=== PATIENT | male | born 1965 | race Caucasian/White ===

== ENCOUNTER 2017-10-14 14:54 | Emergency (ER) | payer OTHER ==
[~2017-10-14] VITALS: Ht 175.3 cm; Wt 96.0 kg
[2017-10-14 15:04] VITALS: TEMP 36.8; Ht 175.3 cm; Wt 96.0 kg
[2017-10-14 16:17] LABS: BASO % 1.2 %; BASO ABS # 0.05 K/uL (0-0.2); EOS % 2.6 %; EOS ABS # 0.11 K/uL (0-0.5); HEMATOCRIT 45.6 % (42-52); HEMOGLOBIN 15.4 g/dL (14.0-18.0); LYMPH % 49.5 %; LYMPH ABS # 2.11 K/uL (1.2-3.4); MEAN CELL VOLUME 93.6 fL (80-100); MEAN CORPUSCULAR HEMOGLOBIN 31.6 pg (25-34); MEAN CORPUSCULAR HGB CONC 33.8 g/dl (32-36); MEAN PLATELET VOLUME 9.8 fL (7.4-10.4); MONO % 5.6 %; MONO ABS # 0.24 K/uL (0.11-0.59); NEUT % 41.1 %; NEUT ABS # 1.75 K/uL (1.4-6.5); PLATELET COUNT 132 K/uL (130-400); RED CELL DISTRIBUTION WIDTH CV 14.1 % (11.5-14.5); RED CELL DISTRIBUTION WIDTH SD 48.2 fL (36.4-46.3); WHITE BLOOD COUNT 4.26 K/uL (4.8-10.8)
[2017-10-14 16:36] LABS: PTT PATIENT 24.7 SECONDS (21.0-31.0)
[2017-10-14 16:51] LABS: ALBUMIN 4.4 gm/dl (3.4-5.0); CALCIUM 9.2 mg/dl (8.5-10.1); CREATININE 0.73 mg/dl (0.60-1.40); POTASSIUM 3.7 mmol/L (3.5-5.1)
--- NOTE | 2017-10-14 19:13 | EMERGENCY ROOM VISIT NOTE ---
History Report prepared by Stanton: Adri White Under the Supervision of: Dr. Tin Wells M.D. First contact with patient: 15:28 Chief Complaint: MENTAL HEALTH EVALUATION Stated Complaint: ALCOHOLIC, SUICIDAL THOUGHTS History of Present Illness The patient is a 52 year old male who presents to the Emergency Room with complaints of chronic alcoholism that onset 30 years ago. The patient notes that his sister and [id number] made him come in today for his alcohol use. The patient states that he saw his PCP this morning and was given Librium to assist with his recovery. He notes that he will not be able to drink at the end of the month due to probation because of a recent DUI. The patient is worried that if he quits drinking suddenly, he will . He states that he thinks that his body "can no longer handle alcohol" and he "can't take it anymore". He notes that he drank this morning enough "to be functional". The patient denies feeling depressed, suicidal, hangovers, or current hallucinations. The patient notes he has been drinking vodka and beer his whole life and that he drinks a dozen bears and a fifth of vodka daily. The patient notes that he has a history of hallucinations that occurred 6 months ago where he saw bugs. He states that over the past 6 months he has been through two rounds of rehabilitation. The patient states that he was in the hospital for two weeks and was released to be sent to [place] for rehabilitation. He states that he also has a history of DTs , seizures, and being on a vent during recovery. He denies the use other drugs. The patient denies any medical issues or medications. The patient notes that his sister is also an alcoholic and she took some of his prescribed Librium. 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 The patient states that his drinking has never affected his work or abilities until today, as he had to go home after arriving to work. Source of History: patient Onset: 30 years ago Timing: other (chroni) Note: The patient denies feeling depressed, suicidal, or hallucinations. Review of Systems See HPI for pertinent positives and negatives. A total of ten systems were reviewed and were otherwise negative. Family History FH: alcoholism Social History Smoking Status: Former Smoker Alcohol Use: heavy Drug Use: none Occupation Status: employed (Pluming, heating, air conditioning.) Current/Historical Medications No Active Prescriptions or Reported Meds Allergies Coded Allergies: No Known Allergies (Unverified , 10/14/17) Physical Exam Vital Signs Date Time Temp Pulse Resp B/P (MAP) Pulse Ox O2 Delivery O2 Flow Rate FiO2 10/14/17 18:03 94 16 140/65 95 Room Air 10/14/17 16:51 92 18 168/91 95 Room Air 10/14/17 15:04 36.8 124 18 147/93 94 Room Air Physical Exam GENERAL: Awake, alert, well-appearing, in no distress HENT: Normocephalic, atraumatic. Oropharynx unremarkable. EYES: Normal conjunctiva. Sclera non-icteric. NECK: Supple. No nuchal rigidity. RESPIRATORY: Clear to auscultation. No wheezes. Normal respiratory effort. CARDIAC: Normal rate. Normal rhythm. Extremities warm and well perfused. GI: Soft, non-distended. No tenderness to palpation. No rebound or guarding. No masses. RECTAL: Deferred. MUSCULOSKELETAL: Atraumatic. Chest examination reveals no tenderness. There is no CVA tenderness to palpation. LOWER EXTREMITIES: Calves are equal size bilaterally and non-tender. No edema NEURO: Normal sensorium. No sensory or motor deficits noted. No facial droop. SKIN: Warm and dry. No rash or jaundice noted. PSYCH: No SI or HI, intact fund of knowledge, normal response to external stimuli, normal affect. Medical Decision & Procedures Laboratory Results 10/14/17 16:02 Red Blood Count 4.87, Mean Corpuscular Volume 93.6, Mean Corpuscular Hemoglobin 31.6, Mean Corpuscular Hemoglobin Concent 33.8, Mean Platelet Volume 9.8, Neutrophils (%) (Auto) 41.1, Lymphocytes (%) (Auto) 49.5, Monocytes (%) (Auto) 5.6, Eosinophils (%) (Auto) 2.6, Basophils (%) (Auto) 1.2, Neutrophils # (Auto) 1.75, Lymphocytes # (Auto) 2.11, Monocytes # (Auto) 0.24, Eosinophils # (Auto) 0.11, Basophils # (Auto) 0.05 10/14/17 16:02 Test 10/14/17 15:15 10/14/17 15:30 10/14/17 16:02 Urine Color YELLOW Urine Appearance CLEAR (CLEAR) Urine pH 7.0 (4.5-7.5) Urine Specific Flushing 1.019 (1.000-1.030) Urine Protein 2+ (NEG) Urine Glucose (UA) NEG (NEG) Urine Ketones TRACE (NEG) Urine Occult Blood NEG (NEG) Urine Nitrite NEG (NEG) Urine Bilirubin NEG (NEG) Urine Urobilinogen NEG (NEG) Urine Leukocyte Esterase TRACE (NEG) Urine WBC (Auto) 1-5 /hpf (0-5) Urine RBC (Auto) 0-4 /hpf (0-4) Urine Hyaline Casts (Auto) 5-10 /lpf (0-5) Urine Epithelial Cells (Auto) 5-10 /lpf (0-5) Urine Bacteria (Auto) NEG (NEG) Urine Opiates Screen NEG (NEG) Urine Methadone, Qualitative NEG (NEG) Urine Barbiturates NEG (NEG) Urine Phencyclidine (PCP) Level NEG (NEG) Ur Amphetamine/Methamphetamine NEG (NEG) MDMA (Ecstasy) Screen NEG (NEG) Urine Benzodiazepines Screen NEG (NEG) Urine Cocaine Metabolite NEG (NEG) Urine Marijuana (THC) NEG (NEG) Bedside Glucose 102 mg/dl (70-99) White Blood Count 4.26 K/uL (4.8-10.8) Red Blood Count 4.87 M/uL (4.7-6.1) Hemoglobin 15.4 g/dL (14.0-18.0) Hematocrit 45.6 % (42-52) Mean Corpuscular Volume 93.6 fL (80-100) Mean Corpuscular Hemoglobin 31.6 pg (25-34) Mean Corpuscular Hemoglobin Concent 33.8 g/dl (32-36) Platelet Count 132 K/uL (130-400) Mean Platelet Volume 9.8 fL (7.4-10.4) Neutrophils (%) (Auto) 41.1 % Lymphocytes (%) (Auto) 49.5 % Monocytes (%) (Auto) 5.6 % Eosinophils (%) (Auto) 2.6 % Basophils (%) (Auto) 1.2 % Neutrophils # (Auto) 1.75 K/uL (1.4-6.5) Lymphocytes # (Auto) 2.11 K/uL (1.2-3.4) Monocytes # (Auto) 0.24 K/uL (0.11-0.59) Eosinophils # (Auto) 0.11 K/uL (0-0.5) Basophils # (Auto) 0.05 K/uL (0-0.2) RDW Standard Deviation 48.2 fL (36.4-46.3) RDW Coefficient of Variation 14.1 % (11.5-14.5) Immature Granulocyte % (Auto) 0.0 % Immature Granulocyte # (Auto) 0.00 K/uL (0.00-0.02) Prothrombin Time 10.0 SECONDS (9.0-12.0) Prothromb Time International Ratio 1.0 (0.9-1.1) Activated Partial Thromboplast Time 24.7 SECONDS (21.0-31.0) Partial Thromboplastin Ratio 1.0 Anion Gap 11.0 mmol/L (3-11) Est Creatinine Clear Calc Drug Dose 135.3 ml/min Estimated GFR () 123.6 Estimated GFR (Non- 106.6 BUN/Creatinine Ratio 8.8 (10-20) Calcium Level 9.2 mg/dl (8.5-10.1) Magnesium Level 1.6 mg/dl (1.8-2.4) Total Bilirubin 0.4 mg/dl (0.2-1) Direct Bilirubin 0.2 mg/dl (0-0.2) Aspartate Amino Transf (AST/SGOT) 55 U/L (15-37) Alanine Aminotransferase (ALT/SGPT) 55 U/L (12-78) Alkaline Phosphatase 51 U/L (45-117) Total Protein 8.0 gm/dl (6.4-8.2) Albumin 4.4 gm/dl (3.4-5.0) Thyroid Stimulating Hormone (TSH) 1.290 uIu/ml (0.300-4.500) Salicylates Level < 1.7 mg/dl (2.8-20) Acetaminophen Level < 2 ug/ml (10-30) Ethyl Alcohol mg/dL 343.7 mg/dl (0-3) Laboratory results reviewed by me ECG Per My Interpretation Indication: other (medical clearance) Rate (beats per minute): 94 Rhythm: normal sinus Findings: other (normal interval, no ST segment elevation, normal axis) Comparison ECG Date: no prior available ED Course 1530: The patient was evaluated in room A5. A complete history and physical exam was performed. 2009: Sign out to Dr. Whitmore with plan to monitor for withdrawal while awaiting sobriety. Gelacio closer to 4am. Reassess for SI/HI and see if he wishes for inpatient ETOH care. If no SI/HI and no wish for inpatient on reeval at 4am; patient likely to be discharged then. Medical Decision Differential diagnosis: Etiologies such as mood disorder, infection, alcohol withdrawal and abuse, hypoglycemia, electrolyte abnormalities, cardiac sources, intracerebral event, toxicologic, neurologic, as well as others were entertained. Patient presents today requesting help with alcohol abuse. Significant history of alcohol abuse for more than 30 years. 2 inpatient stays recently. Family reports that while intoxicated this morning he made some suicidal comments. He denies any of this currently. States he just wants help with coming off the alcohol is a significant history of withdrawal including seizures. Last drink was around 11am this morning. Patient denies any suicidal or homicidal ideation now. Denies any hallucinations. Denies any generalized medical complaint otherwise. Recently prescribed Librium that his sister took instead of him several days ago. Patient does not want inpatient rehab. Basic labs were completed to look for alcohol intoxication or other abnormality given his chronic alcohol use. Significantly elevated alcohol level without liver impairment. Will monitor the patient for sobriety and also for any signs of alcohol withdrawal. Will need to be reevaluated when sober for any potential SI or HI. Have a lower suspicion that this will occur but will have the patient reassessed. Given some vitamin supplementation. If he begins to experience withdrawal symptoms will feel comfortable giving small amount of Librium. If the patient when sober denies any SI or HI and still declines inpatient alcohol treatment feel that sending the patient home with a small quantity of Librium taper is reasonable. If this occurs will definitely need be referred for close outpatient follow-up. Signed out pending his sobriety for reassessment of possible SI and to reassess if he would desire inpatient treatment for his alcohol abuse. Did order patient thiamine and folic acid supplementation via oral tabs. Medication Reconcilliation Current Medication List: was personally reviewed by me Blood Pressure Screening Patient's blood pressure: Elevated blood pressure Blood pressure disposition: Referred to PCP Impression Primary Impression: Alcohol abuse Scribe Attestation The scribe's documentation has been prepared under my direction and personally reviewed by me in its entirety. I confirm that the note above accurately reflects all work, treatment, procedures, and medical decision making performed by me. Departure Information Dispostion Still a Patient Prescriptions No Active Prescriptions or Reported Meds Referrals No Doctor, Assigned (PCP) Forms HOME CARE DOCUMENTATION FORM, IMPORTANT VISIT INFORMATION Patient Instructions My [facility]
--- NOTE | 2017-10-14 20:12 | EMERGENCY ROOM VISIT NOTE ---
ED Visit Note First contact with patient: 20:09 The patient was taken in signout from Dr. Wells at the change of shift. Please see that note for details. The patient was pending mental health evaluation and alcohol clearance. I did evaluate the patient. He initially declined medication for possible withdrawal. He was observed. He was feeling shaky. His heart rate was slightly elevated as was his blood pressure. He notes a long history of alcohol abuse. He was given a dose of Librium 25 mg. He was still feeling shaky and was given a second dose. His vital signs improved slightly. He was still feeling anxious and stated that he has had good success in the past with Ativan. He was given a 1 mg sublingual dose. Vital signs were improved. He will need to be monitored and have the evaluation by psychiatric case management. Currently he is denying any suicidal homicidal thoughts. I did discuss his case with Dr. pickering at the change of shift. She will continue to monitor him, watch for signs of withdrawal, and close out his case regarding the psychiatric aspect.
[2017-10-14] MEDS: THIAMINE HCL 100 MG TAB PO SCH ×2 (21:18→22:29)
[2017-10-15] MEDS ORDERED: CHLORDIAZEPOXIDE 25 MG CAP PO ONE ×3 (00:45→08:00)
[2017-10-15] MEDS ORDERED: LORAZEPAM 1 MG TAB SL STA (02:06)
[2017-10-15] MEDS ORDERED: MAGNESIUM OXIDE 400 MG TAB PO STA (02:46)
--- NOTE | 2017-10-15 02:49 | EMERGENCY ROOM VISIT NOTE ---
ED Visit Note First contact with patient: 02:13 Pt signed out to me by Dr. Whitmore. Awaiting psychiatric evaluation. 0245: Seen by Constance pt denying SI/HI, no hx of attempts. Admits to chronic etoh abuse. Aware of risks of ETOH abuse. No significant withdrawal symptoms here. VS stable. 0739: Patient well-appearing here, no overt withdrawal symptoms, ambulatory with a steady gait, vital signs still reassuring. 0826: Patient's sister now here as his safe and sober ride.
[2017-10-15] MEDS ORDERED: CHLO25CA10 PO (08:28)
[2017-10-15 08:32] VITALS: BP 151/87; PULSE 78; O2SAT 100
== END 2017-10-15 08:45 | disposition home or self-care (01) ==
LOC: C.EDB 14:55 → C.EDA 10-15 08:45
DX: F10.10 Alcohol abuse, uncomplicated (principal); Z87.891 Personal history of nicotine dependence